=== PATIENT | female | born 1995 | race Caucasian/White ===

== ENCOUNTER 2016-03-30 08:04 | Emergency (ER) | payer MEDICAID ==
[2016-03-30 08:15] VITALS: TEMP 98.6; BMI 26.2
[2016-03-30] MEDS ORDERED: NS 2,000 ML IV ONE (08:33)
[2016-03-30] MEDS ORDERED: ONDANSETRON HCL 4 MG/2 ML VIAL IV ONE (08:35)
--- NOTE | 2016-03-30 08:46 | EDPRACDOC ---
- General Information Chief Complaint: Nausea,Vomiting,Diarrhea Stated Complaint: VOMITING/ DIARRHEA Time Seen by Provider: 03/30/16 08:27 Mode Of Arrival: Car Home Medications: Home Medications Vits W-Ca,Fe,FA(<1Mg) [] 1 tab PO DAILY 07/07/15 Ondansetron HCl [Zofran] 4 mg PO TID PRN #7 tablet 03/30/16 Unknown Zofran Non Prescribed 0 mg PO .ONCE SEE COMMENTS 03/30/16 Allergies/Adverse Reactions: Allergies Allergy/AdvReac Type Severity Reaction Status Date / Time No Known Allergies Allergy Verified 03/30/16 08:15 - History of Present Illness Onset: LAST NIGHT HPI: APPROXIMATELY 9 HOURS OF INTERMITTENT NAUSEA VOMITING DIARRHEA. INTERMITTENT MILD CRAMPY ABDOMINAL PAIN. CURRENTLY 22 WEEKS NO VAGINAL BLEEDING OR VAGINAL DISCHARGE. FOLLOWED BY [facility]. Symptoms Occured: Reports: Spontaneous : Yes (22 WK) ED Past Medical History - History Reviewed Yes Nurses notes reviewed and agree except as marked - Patient Medical History Neurological History: Denies: Cerebrovascular Accident, Seizures, Multiple Sclerosis Cardiac History: Denies: Syncope Respiratory History: Reports: Asthma Psychological History: Reports: Anxiety. Denies: Depression, Bipolar Disorder Additional Past Medical History: DEMISE 22WEEKS ON 12/19/14 - Family Medical History Reports: Diabetes (maternal grandmother), Cancer (paternal grandfather). Denies : Hypertension, Stroke, Cardiac Disorders - Social Medical History Smoking Status: Former smoker EDM Review of Systems - Review of Systems ROS Negative Except as Marked: Yes All systems reviewed and were negative except as marked - Physical Exam Constitutional: No apparent distress, Alert Oriented to: Time, Person, Place Last recorded Vital Signs: Last Vital Signs Temp 98.6 F 03/30/16 08:12 Pulse 115 03/30/16 08:12 Resp 18 03/30/16 08:12 BP 114/80 03/30/16 08:12 Pulse Ox 96 03/30/16 08:12 Oxygen Pulse Oxygen Saturation 96 O2 Device Room Air Oxygen Flow Rate Fraction of Inspired Oxygen ( FIO2) - HEENT Head: Normal Eye Exam: Normal. negative: Pale Conjunctiva, Scleral Icterus Oropharynx: Membranes Dry Nose: No Symptoms Reported Neck: Normal - Respiratory/Cardiovascular Respiratory: Normal - CTA Cardiovascular: Normal - GI Auscultation: Normal Palpation: Normal Tenderness: Non tender, Other (GRAVID UTERUS APPROXIMATELY THE LEVEL OF THE UMBILICUS. NONTENDER PALPATION). negative: Guarding, Rebound, Rigidity Ragland's Sign: Negative - Bladder: Normal - Musculoskeletal Back: Normal Extremities: Normal. negative: Pedal Edema - Integumentary Skin: Normal, Warm, Dry - Neurologic Memory Impaired: Normal Mood Description: Normal - Departure Disposition: Home Condition: Stable Final Diagnosis: Vomiting and diarrhea, Dehydration Qualifiers: Weeks of gestation: 22 weeks Qualified Code(s): Z3A.22 - 22 weeks gestation of Instructions: Acute Diarrhea (ED) Education/Counseling Given To: Patient Education/Counseling Given Regarding: Diagnosis, Treatment, Prognosis Referrals: None,No Provider [Primary Care Provider] - One Week Prescriptions: New Ondansetron HCl [Zofran] 4 mg PO TID PRN #7 tablet PRN Reason: NAUSEA OR VOMITING No Action Vits W-Ca,Fe,FA(<1Mg) [] 1 tab PO DAILY Unknown Zofran Non Prescribed 0 mg PO .ONCE SEE COMMENTS Additional Instructions: Drink sips of Gatorade every 2-3 minutes while awake. Do NOT drink large volumes of fluid at once. If you vomit, take the nausea-vomiting medicine prescribed, wait ~ 30 minutes, and restart the sipping process. Return to the Emergency Department if you think you are getting dehydrated, have persistent abdominal pain that is unrelenting, have worse or different symptoms, or any concerns.
[2016-03-30 10:07] VITALS: BP 112/70; PULSE 100
== END 2016-03-30 10:06 | disposition home or self-care (01) ==
LOC: ED 08:04
DX: O21.2 Late vomiting of pregnancy (principal); Z3A.22 22 weeks gestation of pregnancy; O26.892 Other specified pregnancy related conditions, second trimester; R19.7 Diarrhea, unspecified; E86.0 Dehydration
CPT/HCPCS: 96361; 96374; 99284; J2405